=== PATIENT | male | born 1955 | race Caucasian/White ===

== ENCOUNTER 2023-05-01 17:03 | Inpatient (IN) | payer MEDICARE ==
[2023-05-01] MEDS ORDERED: Sodium Chloride 0.9% 1,000 ML IV ONE ×2 (17:10→21:11)
[2023-05-01] MEDS ORDERED: Sodium Chloride 0.9% 10 ML Syringe FLUSH PRN ×2 (17:10→21:11)
[2023-05-01 17:27] LABS: HEMOGLOBIN 13.9 g/dL (12.9-16.9); MEAN CORPUSCULAR HEMOGLOBIN 33.2 pg (31.6-35.5); MEAN CORPUSCULAR HGB CONC 34.8 g/dL (31.6-35.5); MEAN CORPUSCULAR VOLUME 95.5 fL (81.4-99.0); PLATELET COUNT,PLT 389 K/uL (130-375); RED BLOOD CELL COUNT 4.19 M/uL (4.14-5.76); WHITE BLOOD CELL COUNT,WBC 10.8 K/uL (3.2-11.0)
[2023-05-01] MEDS ORDERED: Ondansetron 4 MG/2 ML SDV IVPUSH ONE (17:42)
[2023-05-01] MEDS ORDERED: Sodium Chloride 0.9% 10 ML Syringe FLUSH ONE (17:46)
[2023-05-01 17:48] LABS: A/G RATIO 0.6 (1.2-2.2); ALANINE AMINOTRANSFERASE,ALT 41 U/L (12-78); ALBUMIN 2.6 g/dL (3.4-5.0); ALKALINE PHOSPHATASE 68 U/L (46-116); ASPARTATE AMNIOTRANSFERASE,AST 47 U/L (15-37); BILIRUBIN TOTAL 0.4 mg/dL (0.2-1.0); BLOOD UREA NITROGEN,BUN 19 mg/dL (7-18); CALCIUM 8.6 mg/dL (8.5-10.1); CARBON DIOXIDE,CO2 31 mmol/L (21-32); CHLORIDE,CL 93 mmol/L (100-108); CREATININE 0.8 mg/dL (0.8-1.3); EST CRCL DRUG DOSING (CG) 90.83 mL/min; ESTIMATED GFR 98 mL/min (>60); GLUCOSE RANDOM 135 mg/dL (74-106); POTASSIUM,K 3.8 mmol/L (3.6-5.2); PROTEIN TOTAL,TP 6.9 g/dL (6.4-8.2); SODIUM,NA 132 mmol/L (140-148)
[2023-05-01 17:49] LABS: ATYPICAL LYMPHOCYTES RARE; BAND ABSOLUTE MAN 1.73 K/uL; BAND PERCENT MAN 16 % (5-11); LYMPHOCYTES ABSOLUTE MAN 0.97 K/uL (0.8-3.3); LYMPHOCYTES PERCENT MAN 9 % (24-44); METAMYELOCYTE ABSOLUTE MAN 0.11 K/uL; METAMYELOCYTE PERCENT MAN 1 %; MONOCYTES ABSOLUTE MAN 1.94 K/uL (0.20-0.90); MONOCYTES PERCENT MAN 18 % (2-6); NEUTROPHILS ABSOLUTE MAN 6.05 K/uL (1.0-7.6); SEG NEUTROPHILS PERCENT MAN 56 % (36-66)
[2023-05-01 17:50] LABS: ANION GAP 11.8 mmol/L (5.0-14.0)
[2023-05-01] MEDS ORDERED: Sodium Chloride 0.9% 50 ML IV SCH (18:00)
[2023-05-01] MEDS ORDERED: Iopamidol 612 MG/ML 100 ML Bottle IV SCH (18:00)
[2023-05-01 18:02] LABS: C-REACTIVE PROTEIN 29.79 mg/dL (0.0-0.3)
[2023-05-01 18:47] LABS: CORONAVIRUS COVID-19 NAA NEGATIVE (NEGATIVE); INFLUENZA A NAA NEGATIVE (NEGATIVE); INFLUENZA B NAA NEGATIVE (NEGATIVE); RESPIRATORY SYNCYTIAL VIR NAA NEGATIVE (NEGATIVE)
[2023-05-01] MEDS ORDERED: Ketorolac 15 MG/ML SDV IVPUSH ONE (18:59)
[2023-05-01] MEDS ORDERED: Meropenem 1 GM in Sodium Chloride 0.9% 100 ML IV ONE (19:35)
[2023-05-01] MEDS ORDERED: Acetaminophen 500 MG Tab PO ONE (20:48)
[2023-05-01] MEDS ORDERED: Enoxaparin 40 MG/0.4 ML Syringe SUBCUT SCH (21:11)
[2023-05-01] MEDS ORDERED: Meropenem 1 GM in Sodium Chloride 0.9% 100 ML IV SCH (21:11)
[2023-05-01] MEDS ORDERED: Naloxone 0.4 MG/ML SDV IVPUSH PRN (21:11)
[2023-05-01] MEDS ORDERED: Polyethylene Glycol 3350 Powder 17 GM Packet PO PRN (21:11)
[2023-05-01] MEDS ORDERED: Celecoxib 200 MG Cap PO PRN (21:11)
[2023-05-01] MEDS ORDERED: Rosuvastatin 10 MG Tab PO ONE (22:45)
[2023-05-01] MEDS ORDERED: Ezetimibe 10 MG Tab PO ONE (22:45)
[2023-05-01] MEDS: Sodium Chloride 0.9% 1,000 ML IV SCH (23:15)
[2023-05-02] MEDS: Acetaminophen 325 MG Tab PO PRN ×3 (01:50→20:44)
[2023-05-02] MEDS: Ondansetron 4 MG/2 ML SDV IV PRN ×3 (01:52→23:12)
[2023-05-02] MEDS: Meropenem 1 GM in Sodium Chloride 0.9% 100 ML IV SCH ×2 (04:59→11:28)
[2023-05-02 05:23] LABS: HEMATOCRIT 38.2 % (38.4-49.7); HEMOGLOBIN 13.1 g/dL (12.9-16.9); MEAN CORPUSCULAR HGB CONC 34.3 g/dL (31.6-35.5); MEAN CORPUSCULAR VOLUME 96.2 fL (81.4-99.0); PLATELET COUNT,PLT 403 K/uL (130-375); RED BLOOD CELL COUNT 3.97 M/uL (4.14-5.76); WHITE BLOOD CELL COUNT,WBC 11.8 K/uL (3.2-11.0)
[2023-05-02 05:39] LABS: CREATININE 0.8 mg/dL (0.8-1.3); EST CRCL DRUG DOSING (CG) 90.83 mL/min; MAGNESIUM 2.1 mg/dL (1.8-2.4); POTASSIUM,K 3.3 mmol/L (3.6-5.2)
[2023-05-02 05:43] LABS: ANION GAP 13.3 mmol/L (5.0-14.0)
[2023-05-02 05:51] LABS: BAND ABSOLUTE MAN 2.01 K/uL; BAND PERCENT MAN 17 % (5-11); LYMPHOCYTES ABSOLUTE MAN 1.06 K/uL (0.8-3.3); LYMPHOCYTES PERCENT MAN 9 % (24-44); METAMYELOCYTE ABSOLUTE MAN 0.24 K/uL; METAMYELOCYTE PERCENT MAN 2 %; MONOCYTES ABSOLUTE MAN 1.42 K/uL (0.20-0.90); MONOCYTES PERCENT MAN 12 % (2-6); NEUTROPHILS ABSOLUTE MAN 7.08 K/uL (1.0-7.6); SEG NEUTROPHILS PERCENT MAN 60 % (36-66)
[2023-05-02] MEDS: Sodium Chloride 0.9% 1,000 ML IV SCH ×2 (07:52→17:30)
[2023-05-02] MEDS ORDERED: Potassium Chloride 20 MEQ Tab.ER PO ONE (08:30)
[2023-05-02] MEDS: HYDROmorphone 0.5 MG/0.5 ML Syringe IVPUSH PRN ×5 (10:19→23:13)
[2023-05-02] MEDS ORDERED: Piperacillin/Tazobactam 3.375 GM in Sodium Chloride 0.9% 50 ML IV SCH (15:15)
[2023-05-02] MEDS: Piperacillin/Tazobactam/Dext 3.375 GM in Premix Bag 1 BAG IV SCH ×2 (18:01→22:01)
[2023-05-02] MEDS: Enoxaparin 40 MG/0.4 ML Syringe SUBCUT SCH (20:44)
[2023-05-02] MEDS: Ezetimibe 10 MG Tab PO SCH (20:45)
[2023-05-02] MEDS: Rosuvastatin 10 MG Tab PO SCH (20:45)
[2023-05-03] MEDS: Piperacillin/Tazobactam/Dext 3.375 GM in Premix Bag 1 BAG IV SCH ×5 (02:45→21:16)
[2023-05-03] MEDS: Acetaminophen 325 MG Tab PO PRN ×3 (02:47→18:04)
[2023-05-03] MEDS: HYDROmorphone 0.5 MG/0.5 ML Syringe IVPUSH PRN ×5 (03:04→21:15)
[2023-05-03 05:24] LABS: HEMATOCRIT 33.9 % (38.4-49.7); HEMOGLOBIN 11.4 g/dL (12.9-16.9); MEAN CORPUSCULAR HEMOGLOBIN 32.7 pg (31.6-35.5); MEAN CORPUSCULAR HGB CONC 33.6 g/dL (31.6-35.5); MEAN CORPUSCULAR VOLUME 97.1 fL (81.4-99.0); PLATELET COUNT,PLT 373 K/uL (130-375); RED BLOOD CELL COUNT 3.49 M/uL (4.14-5.76); WHITE BLOOD CELL COUNT,WBC 10.8 K/uL (3.2-11.0)
[2023-05-03 05:44] LABS: CALCIUM 7.6 mg/dL (8.5-10.1); CREATININE 0.8 mg/dL (0.8-1.3); EST CRCL DRUG DOSING (CG) 90.83 mL/min; POTASSIUM,K 3.4 mmol/L (3.6-5.2)
[2023-05-03 05:45] LABS: ANION GAP 8.4 mmol/L (5.0-14.0)
[2023-05-03 05:51] LABS: ATYPICAL LYMPHOCYTES FEW; BAND ABSOLUTE MAN 2.38 K/uL; BAND PERCENT MAN 22 % (5-11); LYMPHOCYTES ABSOLUTE MAN 2.38 K/uL (0.8-3.3); LYMPHOCYTES PERCENT MAN 22 % (24-44); METAMYELOCYTE ABSOLUTE MAN 0.22 K/uL; METAMYELOCYTE PERCENT MAN 2 %; MONOCYTES ABSOLUTE MAN 0.65 K/uL (0.20-0.90); MONOCYTES PERCENT MAN 6 % (2-6); NEUTROPHILS ABSOLUTE MAN 5.18 K/uL (1.0-7.6); SEG NEUTROPHILS PERCENT MAN 48 % (36-66)
[2023-05-03] MEDS: Sodium Chloride 0.9% 1,000 ML IV SCH (06:35)
[2023-05-03] MEDS ORDERED: Potassium Chloride 20 MEQ Tab.ER PO ONE (08:30)
[2023-05-03] MEDS: Aspirin 81 MG Tab.EC PO SCH (10:40)
[2023-05-03] MEDS: Ondansetron 4 MG/2 ML SDV IV PRN (10:42)
[2023-05-03] MEDS: Enoxaparin 40 MG/0.4 ML Syringe SUBCUT SCH (21:14)
[2023-05-03] MEDS: Rosuvastatin 10 MG Tab PO SCH (21:15)
[2023-05-03] MEDS: Ezetimibe 10 MG Tab PO SCH (21:15)
[2023-05-04] MEDS: HYDROmorphone 0.5 MG/0.5 ML Syringe IVPUSH PRN ×5 (00:10→20:40)
[2023-05-04] MEDS: Piperacillin/Tazobactam/Dext 3.375 GM in Premix Bag 1 BAG IV SCH ×4 (04:01→22:00)
[2023-05-04] MEDS: Acetaminophen 325 MG Tab PO PRN ×4 (04:23→23:08)
[2023-05-04] MEDS: Ondansetron 4 MG/2 ML SDV IV PRN (04:23)
[2023-05-04] MEDS: Aspirin 81 MG Tab.EC PO SCH (08:33)
[2023-05-04] MEDS: Celecoxib 200 MG Cap PO SCH (08:33)
[2023-05-04] MEDS: Ezetimibe 10 MG Tab PO SCH (20:40)
[2023-05-04] MEDS: Enoxaparin 40 MG/0.4 ML Syringe SUBCUT SCH (20:40)
[2023-05-04] MEDS: Rosuvastatin 10 MG Tab PO SCH (20:40)
[2023-05-05] MEDS: HYDROmorphone 0.5 MG/0.5 ML Syringe IVPUSH PRN ×3 (02:50→13:29)
[2023-05-05] MEDS: Piperacillin/Tazobactam/Dext 3.375 GM in Premix Bag 1 BAG IV SCH ×4 (03:42→21:14)
[2023-05-05] MEDS: Ondansetron 4 MG/2 ML SDV IV PRN (03:47)
[2023-05-05] MEDS: Acetaminophen 325 MG Tab PO PRN ×2 (07:49→19:21)
[2023-05-05] MEDS: Celecoxib 200 MG Cap PO SCH (09:06)
[2023-05-05] MEDS: Aspirin 81 MG Tab.EC PO SCH (09:06)
[2023-05-05] MEDS ORDERED: Iopamidol 612 MG/ML 30 ML SDV PO STA (12:06)
[2023-05-05] MEDS ORDERED: Iopamidol 612 MG/ML 100 ML Bottle IV STA (12:06)
[2023-05-05] MEDS ORDERED: Sodium Chloride 0.9% 10 ML Syringe FLUSH STA (12:07)
[2023-05-05] MEDS ORDERED: Sodium Chloride 0.9% 50 ML IV STA (12:07)
[2023-05-05] MEDS: Rosuvastatin 10 MG Tab PO SCH (21:13)
[2023-05-05] MEDS: Enoxaparin 40 MG/0.4 ML Syringe SUBCUT SCH (21:13)
[2023-05-05] MEDS: Ezetimibe 10 MG Tab PO SCH (21:14)
[2023-05-06] MEDS: Piperacillin/Tazobactam/Dext 3.375 GM in Premix Bag 1 BAG IV SCH (04:27)
[2023-05-06] MEDS: Acetaminophen 325 MG Tab PO PRN ×2 (04:30→18:48)
[2023-05-06] MEDS ORDERED: Ibuprofen 600 MG Tab PO PRN (05:22)
[2023-05-06 06:13] LABS: HEMOGLOBIN 11.4 g/dL (12.9-16.9); MEAN CORPUSCULAR HEMOGLOBIN 32.4 pg (31.6-35.5); MEAN CORPUSCULAR HGB CONC 34.5 g/dL (31.6-35.5); MEAN CORPUSCULAR VOLUME 93.8 fL (81.4-99.0); PLATELET COUNT,PLT 479 K/uL (130-375); RED BLOOD CELL COUNT 3.52 M/uL (4.14-5.76); WHITE BLOOD CELL COUNT,WBC 6.9 K/uL (3.2-11.0)
[2023-05-06 06:29] LABS: CALCIUM 7.8 mg/dL (8.5-10.1); CREATININE 0.8 mg/dL (0.8-1.3); EST CRCL DRUG DOSING (CG) 90.83 mL/min
[2023-05-06 06:42] LABS: ANION GAP 10.3 mmol/L (5.0-14.0); POTASSIUM,K 2.3 mmol/L (3.6-5.2)
[2023-05-06 06:44] LABS: BAND ABSOLUTE MAN 1.04 K/uL; BAND PERCENT MAN 15 % (5-11); LYMPHOCYTES ABSOLUTE MAN 1.24 K/uL (0.8-3.3); LYMPHOCYTES PERCENT MAN 18 % (24-44); MONOCYTES ABSOLUTE MAN 0.69 K/uL (0.20-0.90); MONOCYTES PERCENT MAN 10 % (2-6); NEUTROPHILS ABSOLUTE MAN 3.93 K/uL (1.0-7.6); SEG NEUTROPHILS PERCENT MAN 57 % (36-66)
[2023-05-06] MEDS ORDERED: Potassium Chloride 10% 20 MEQ/15 ML Soln 15 ML UD Cup PO ONE (06:45)
[2023-05-06] MEDS ORDERED: Potassium Chloride 20 MEQ in Premix Bag 1 BAG IV ONE ×2 (06:47→18:29)
[2023-05-06] MEDS ORDERED: Potassium Chloride 20 MEQ Tab.ER PO ONE ×2 (08:30→18:27)
[2023-05-06] MEDS ORDERED: Vancomycin 1 GM SDV IV SCH (09:00)
[2023-05-06] MEDS: Meropenem 1 GM in Sodium Chloride 0.9% 100 ML IV SCH ×2 (10:08→17:21)
[2023-05-06 10:10] LABS: APPEARANCE,URINE CLEAR (CLEAR); BILIRUBIN,URINE NEGATIVE (NEGATIVE); COLOR,URINE YELLOW (YELLOW); GLUCOSE,URINE NEGATIVE (NEGATIVE); KETONES,URINE NEGATIVE (NEGATIVE); LEUKOCYTE ESTERASE,URINE NEGATIVE (NEGATIVE); NITRITE,URINE NEGATIVE (NEGATIVE); OCCULT BLOOD,URINE TRACE-LYSED (NEGATIVE); PROTEIN,URINE NEGATIVE (NEGATIVE); UROBILINOGEN,URINE 0.2 EU/dL (0.2-1.0)
[2023-05-06] MEDS: Aspirin 81 MG Tab.EC PO SCH (10:10)
[2023-05-06] MEDS: Celecoxib 200 MG Cap PO SCH (10:11)
[2023-05-06 10:26] LABS: AMORPHOUS SEDIMENT,URINE RARE; BACTERIA,URINE NOT SEEN; EPITHELIAL CELLS,URINE NOT SEEN; MUCUS,URINE NOT SEEN; RBC,URINE 0-5 (0-5); WBC,URINE NOT SEEN (0-5)
[2023-05-06] MEDS: Potassium Chloride 10 MEQ in Premix Bag 1 BAG IV SCH ×4 (10:51→15:35)
[2023-05-06] MEDS ORDERED: Furosemide 40 MG/4 ML VIAL IVPUSH ONE (11:15)
[2023-05-06] MEDS: LORazepam 0.5 MG Tab PO PRN ×2 (11:54→21:28)
[2023-05-06] MEDS ORDERED: Aztreonam 1 GM in Sodium Chloride 0.9% 100 ML IV SCH (14:00)
[2023-05-06] MEDS ORDERED: Potassium Chloride 20 MEQ, Lidocaine 1% 2 ML in Sodium Chloride 0.9% 100 ML IV ONE (15:30)
[2023-05-06] MEDS: Potassium Chloride 20 MEQ in Premix Bag 1 BAG IV SCH ×2 (19:12→21:18)
[2023-05-06] MEDS: Enoxaparin 40 MG/0.4 ML Syringe SUBCUT SCH (21:29)
[2023-05-06] MEDS: Rosuvastatin 10 MG Tab PO SCH (21:29)
[2023-05-06] MEDS: Ezetimibe 10 MG Tab PO SCH (21:29)
[2023-05-06] MEDS ORDERED: Ibuprofen 600 MG Tab PO ONE (21:36)
[2023-05-07] MEDS: Meropenem 1 GM in Sodium Chloride 0.9% 100 ML IV SCH ×3 (00:14→17:11)
[2023-05-07 06:02] LABS: CALCIUM 7.8 mg/dL (8.5-10.1); CREATININE 0.8 mg/dL (0.8-1.3); EST CRCL DRUG DOSING (CG) 90.83 mL/min
[2023-05-07] MEDS ORDERED: Potassium Chloride 20 MEQ Tab.ER PO ONE ×3 (08:30→18:39)
[2023-05-07] MEDS ORDERED: Furosemide 40 MG/4 ML VIAL IVPUSH ONE (08:30)
[2023-05-07] MEDS: Celecoxib 200 MG Cap PO SCH (08:33)
[2023-05-07] MEDS: Aspirin 81 MG Tab.EC PO SCH (08:34)
[2023-05-07] MEDS: Acetaminophen 325 MG Tab PO PRN ×4 (08:38→21:13)
[2023-05-07] MEDS ORDERED: Potassium Chloride 10 MEQ in Premix Bag 1 BAG IV SCH (09:00)
[2023-05-07] MEDS: Potassium Chloride 20 MEQ, Lidocaine 1% 2 ML in Sodium Chloride 0.9% 100 ML IV SCH ×2 (09:21→11:43)
[2023-05-07] MEDS: LORazepam 0.5 MG Tab PO PRN (19:01)
[2023-05-07] MEDS: Ezetimibe 10 MG Tab PO SCH (21:13)
[2023-05-07] MEDS: Rosuvastatin 10 MG Tab PO SCH (21:13)
[2023-05-07] MEDS: Enoxaparin 40 MG/0.4 ML Syringe SUBCUT SCH (21:14)
[2023-05-08] MEDS: Meropenem 1 GM in Sodium Chloride 0.9% 100 ML IV SCH ×2 (00:25→08:59)
[2023-05-08] MEDS: LORazepam 0.5 MG Tab PO PRN ×2 (05:58→19:24)
[2023-05-08 06:03] LABS: CALCIUM 7.4 mg/dL (8.5-10.1); CREATININE 0.6 mg/dL (0.8-1.3); EST CRCL DRUG DOSING (CG) 121.11 mL/min; POTASSIUM,K 3.5 mmol/L (3.6-5.2)
[2023-05-08] MEDS: Acetaminophen 325 MG Tab PO PRN ×3 (06:03→19:26)
[2023-05-08 06:29] LABS: ANION GAP 9.5 mmol/L (5.0-14.0)
[2023-05-08] MEDS ORDERED: Potassium Chloride 20 MEQ Tab.ER PO ONE (09:00)
[2023-05-08] MEDS: Celecoxib 200 MG Cap PO SCH (09:00)
[2023-05-08] MEDS: Aspirin 81 MG Tab.EC PO SCH (09:00)
[2023-05-08] MEDS: metroNIDAZOLE 250 MG Tab PO SCH ×2 (11:05→18:18)
[2023-05-08] MEDS: Levofloxacin/Dextrose 5%-Water 500 MG in Premix Bag 1 BAG IV SCH (11:05)
[2023-05-08] MEDS: Lactobacillus Rhamnosus GG (Probiotic) Cap PO SCH ×2 (11:05→20:55)
[2023-05-08] MEDS: Rosuvastatin 10 MG Tab PO SCH (20:55)
[2023-05-08] MEDS: Ezetimibe 10 MG Tab PO SCH (20:55)
[2023-05-09] MEDS: metroNIDAZOLE 250 MG Tab PO SCH ×2 (02:20→09:02)
[2023-05-09] MEDS: Acetaminophen 325 MG Tab PO PRN ×2 (02:22→09:02)
[2023-05-09 06:17] LABS: HEMATOCRIT 31.8 % (38.4-49.7); HEMOGLOBIN 10.9 g/dL (12.9-16.9); MEAN CORPUSCULAR HEMOGLOBIN 32.4 pg (31.6-35.5); MEAN CORPUSCULAR HGB CONC 34.3 g/dL (31.6-35.5); MEAN CORPUSCULAR VOLUME 94.6 fL (81.4-99.0); RED BLOOD CELL COUNT 3.36 M/uL (4.14-5.76); WHITE BLOOD CELL COUNT,WBC 5.2 K/uL (3.2-11.0)
[2023-05-09 06:32] LABS: C-REACTIVE PROTEIN 2.65 mg/dL (0.0-0.3); CALCIUM 7.8 mg/dL (8.5-10.1); CREATININE 0.6 mg/dL (0.8-1.3); EST CRCL DRUG DOSING (CG) 121.11 mL/min; POTASSIUM,K 3.5 mmol/L (3.6-5.2)
[2023-05-09 06:34] LABS: ANION GAP 10.5 mmol/L (5.0-14.0)
[2023-05-09] MEDS ORDERED: Potassium Chloride 20 MEQ Tab.ER PO ONE (08:45)
[2023-05-09] MEDS: Aspirin 81 MG Tab.EC PO SCH (09:02)
[2023-05-09] MEDS: Lactobacillus Rhamnosus GG (Probiotic) Cap PO SCH (09:02)
[2023-05-09] MEDS: Celecoxib 200 MG Cap PO SCH (09:02)
[2023-05-09] MEDS: Levofloxacin/Dextrose 5%-Water 500 MG in Premix Bag 1 BAG IV SCH (10:50)
== END 2023-05-09 12:35 | disposition home or self-care (01) | DRG 392 ==
LOC: JP.ED 17:03 → JP.ICU 19:47 → UNDOADMIN 20:22
PROVIDERS: ADMIT Hospitalist; ATTEND Internal Medicine
DX: K52.9 Noninfective gastroenteritis and colitis, unspecified (principal); E86.0 Dehydration; Z20.822 Contact with and (suspected) exposure to COVID-19; A09 Infectious gastroenteritis and colitis, unspecified; F10.20 Alcohol dependence, uncomplicated; E87.6 Hypokalemia; I25.10 Atherosclerotic heart disease of native coronary artery without angina pectoris; K21.9 Gastro-esophageal reflux disease without esophagitis; E78.00 Pure hypercholesterolemia, unspecified; I10 Essential (primary) hypertension; M19.90 Unspecified osteoarthritis, unspecified site; Z96.649 Presence of unspecified artificial hip joint; Z87.891 Personal history of nicotine dependence; Z79.82 Long term (current) use of aspirin; Z79.899 Other long term (current) drug therapy; Z88.5 Allergy status to narcotic agent; Z88.8 Allergy status to other drugs, medicaments and biological substances; Z98.890 Other specified postprocedural states
CPT/HCPCS: 0241U; 36415; 71046; 71260; 74018; 74177; 80048; 80053; 80202; 81001; 83605; 83690; 83735; 84132; 84145; 85025; 85027; 86140; 87040; 87046; 87493; 87899; 89055; 96361; 96374; 96375; 99285; 99222; 99232; 99238; A9270-GY; J1170; J1650; J1885; J1940; J1956; J2185; J2405; J2543; J3370; J3480; J3490; J7030; J7050; Q9967

== ENCOUNTER 2023-10-23 06:53 | Day surgery (SDC) | payer MEDICARE ==
[2023-10-23] MEDS ORDERED: Propofol 200 MG/20 ML SDV ONE (07:25)
[2023-10-23] MEDS ORDERED: fentaNYL 50 MCG/ML SDV ONE (07:25)
[2023-10-23] MEDS ORDERED: Midazolam 1 MG/ML 2 ML SDV ONE (07:25)
[2023-10-23] MEDS: Lactated Ringers 1,000 ML IV SCH (07:57)
== END 2023-10-23 10:15 | disposition home or self-care (01) ==
LOC: JP.SDS 06:53
PROVIDERS: ATTEND Family Medicine
DX: D12.4 Benign neoplasm of descending colon (principal); K52.9 Noninfective gastroenteritis and colitis, unspecified; I10 Essential (primary) hypertension; I25.10 Atherosclerotic heart disease of native coronary artery without angina pectoris; K21.9 Gastro-esophageal reflux disease without esophagitis; E78.5 Hyperlipidemia, unspecified; Z95.1 Presence of aortocoronary bypass graft; Z88.5 Allergy status to narcotic agent
CPT/HCPCS: 00811; 45380; J2250; J2704; J3010; J7120; 88305

== ENCOUNTER 2024-04-15 11:49 | Emergency (ER) | payer MEDICARE ==
[2024-04-15 14:16] LABS: BASOPHILS PERCENT AUTO 0.2 % (0.1-1.3); EOSINOPHILS ABSOLUTE AUTO 0.08 K/uL (0.00-0.40); EOSINOPHILS PERCENT AUTO 0.8 % (0.0-5.4); HEMATOCRIT 40.7 % (38.4-49.7); HEMOGLOBIN 13.7 g/dL (12.9-16.9); IMMATURE GRAN ABSOLUTE AUTO 0.03 K/uL (0.00-0.23); IMMATURE GRAN PERCENT AUTO 0.3 % (0.0-0.7); LYMPHOCYTES ABSOLUTE AUTO 1.46 K/uL (0.8-3.3); LYMPHOCYTES PERCENT AUTO 15.5 % (11.4-47.7); MEAN CORPUSCULAR HEMOGLOBIN 32.8 pg (31.6-35.5); MEAN CORPUSCULAR HGB CONC 33.7 g/dL (31.6-35.5); MEAN CORPUSCULAR VOLUME 97.4 fL (81.4-99.0); MONOCYTES ABSOLUTE AUTO 1.06 K/uL (0.20-0.90); MONOCYTES PERCENT AUTO 11.3 % (3.3-12.6); NEUTROPHILS ABSOLUTE AUTO 6.77 K/uL (1.0-7.6); NEUTROPHILS PERCENT AUTO 71.9 % (40.0-78.1); PLATELET COUNT,PLT 356 K/uL (130-375); RED BLOOD CELL COUNT 4.18 M/uL (4.14-5.76); WHITE BLOOD CELL COUNT,WBC 9.4 K/uL (3.2-11.0)
[2024-04-15 14:17] LABS: BASOPHILS ABSOLUTE AUTO 0.02 K/uL (0.00-0.10)
[2024-04-15] MEDS: Sodium Chloride 0.9% 1,000 ML IV SCH (14:32)
[2024-04-15 14:37] LABS: A/G RATIO 0.8 (1.2-2.2); ALANINE AMINOTRANSFERASE,ALT 28 U/L (12-78); ALBUMIN 3.5 g/dL (3.4-5.0); ALKALINE PHOSPHATASE 82 U/L (46-116); ASPARTATE AMNIOTRANSFERASE,AST 24 U/L (15-37); BILIRUBIN TOTAL 0.4 mg/dL (0.2-1.0); BLOOD UREA NITROGEN,BUN 14 mg/dL (7-18); C-REACTIVE PROTEIN 4.83 mg/dL (<0.50); CALCIUM 9.4 mg/dL (8.5-10.1); CARBON DIOXIDE,CO2 28 mmol/L (21-32); CHLORIDE,CL 101 mmol/L (100-108); CREATININE 0.9 mg/dL (0.8-1.3); EST CRCL DRUG DOSING (CG) 79.65 mL/min; ESTIMATED GFR 94 mL/min (>60); GLUCOSE RANDOM 95 mg/dL (74-106); POTASSIUM,K 4.2 mmol/L (3.6-5.2); PROTEIN TOTAL,TP 7.7 g/dL (6.4-8.2); SODIUM,NA 138 mmol/L (140-148)
[2024-04-15 14:38] LABS: ANION GAP 13.2 mmol/L (5.0-14.0)
[2024-04-15] MEDS: Iopamidol 612 MG/ML 100 ML Bottle IV SCH (15:44)
[2024-04-15] MEDS: Sodium Chloride 0.9% 60 ML IV SCH (15:44)
[2024-04-15] MEDS: Sodium Chloride 0.9% 10 ML Syringe FLUSH ONE (16:30)
[2024-04-15] MEDS ORDERED: Sodium Chloride 0.9% 1,000 ML IV SCH (18:00)
[2024-04-15] MEDS: Ciprofloxacin 500 MG Tab PO ONE (20:13)
[2024-04-15] MEDS: metroNIDAZOLE 250 MG Tab PO ONE (20:13)
== END 2024-04-15 20:36 | disposition home or self-care (01) ==
LOC: JP.ED 11:49
DX: K52.9 Noninfective gastroenteritis and colitis, unspecified (principal); E86.0 Dehydration; E78.00 Pure hypercholesterolemia, unspecified; I10 Essential (primary) hypertension; Z95.5 Presence of coronary angioplasty implant and graft; Z79.899 Other long term (current) drug therapy; Z88.8 Allergy status to other drugs, medicaments and biological substances; Z88.5 Allergy status to narcotic agent
CPT/HCPCS: 36415; 74177; 80053; 85025; 86140; 87493; 96360; 99284; A9270; J3490; J7030; Q9967